=== PATIENT | female | born 1945 | race Caucasian/White ===

== ENCOUNTER → 2017-02-09 | Outpatient (CLI) | payer MEDICARE, OTHER ==
[~2017-02-09] MED LIST: SIMV20TA PO
== END | disposition home or self-care (01) ==
LOC: CFH 13:09
PROVIDERS: ATTEND Family Medicine
DX: Z12.31 Encounter for screening mammogram for malignant neoplasm of breast (principal); Z85.3 Personal history of malignant neoplasm of breast; Z92.3 Personal history of irradiation; Z98.890 Other specified postprocedural states
CPT/HCPCS: G0202

== ENCOUNTER 2018-10-11 13:49 | Outpatient (CLI) | payer MEDICARE, OTHER ==
[2018-10-11] MEDS ORDERED: GADOBUTROL 7.5 MMOL/7.5 ML PFS ONE (15:48)
== END 2018-10-11 23:59 | disposition home or self-care (01) ==
LOC: RAD 13:49
PROVIDERS: ATTEND Physical Medicine & Rehabilitation
DX: M51.34 Other intervertebral disc degeneration, thoracic region (principal); M51.24 Other intervertebral disc displacement, thoracic region; L84 Corns and callosities
CPT/HCPCS: 72157; A9585

== ENCOUNTER 2019-02-28 13:18 | Outpatient (CLI) | payer MEDICARE, OTHER | END 2019-02-28 23:59 | disposition home or self-care (01) | LOC: CFH 13:18 | PROVIDERS: ATTEND Internal Medicine Hematology & Oncology | DX: Z12.31 Encounter for screening mammogram for malignant neoplasm of breast (principal); N64.89 Other specified disorders of breast | CPT/HCPCS: 77063; 77067 ==

== ENCOUNTER 2019-03-07 13:23 | Outpatient (CLI) | payer MEDICARE, OTHER | END 2019-03-07 23:59 | disposition home or self-care (01) | LOC: CFH 13:23 | PROVIDERS: ATTEND Family Medicine | DX: M47.814 Spondylosis without myelopathy or radiculopathy, thoracic region (principal); M41.85 Other forms of scoliosis, thoracolumbar region | CPT/HCPCS: 72072 ==

== ENCOUNTER 2019-03-28 13:06 | Outpatient (CLI) | payer MEDICARE, OTHER | END 2019-03-28 23:59 | disposition home or self-care (01) | LOC: CFH 13:06 | PROVIDERS: ATTEND Internal Medicine Hematology & Oncology | DX: N64.89 Other specified disorders of breast (principal); Z85.3 Personal history of malignant neoplasm of breast | CPT/HCPCS: 76642; 77065 ==

== ENCOUNTER 2020-01-14 10:42 | Outpatient (CLI) | payer MEDICARE, OTHER ==
[~2020-01-14 10:42] MED LIST changes: +ALPR0.5T7 PO; +ASPI-496 PO; +CALC1CAP8 PO; +CITA20TA9 PO; +D3 PO; +HYDR12.517 PO; +[UNRECOGNIZED DRUG - OTHER] PO; +[UNRECOGNIZED DRUG - OTHER] PO; +[UNRECOGNIZED DRUG - OTHER] PO; +flaxseed PO; +hydrochlorothiazide PO; +valium PO
== END 2020-01-14 23:59 | disposition home or self-care (01) ==
LOC: CFH 10:42
PROVIDERS: ATTEND Internal Medicine Hematology & Oncology
DX: M85.88 Other specified disorders of bone density and structure, other site (principal)
CPT/HCPCS: 77080

== ENCOUNTER → 2020-05-07 | Outpatient (CLI) | payer MEDICARE, OTHER | END | disposition home or self-care (01) | LOC: CFH 15:18 | PROVIDERS: ATTEND Internal Medicine Hematology & Oncology | DX: Z12.31 Encounter for screening mammogram for malignant neoplasm of breast (principal); C50.911 Malignant neoplasm of unspecified site of right female breast | CPT/HCPCS: 77063; 77067 ==

== ENCOUNTER → 2021-01-28 | Outpatient (CLI) | payer MEDICARE, OTHER ==
[2021-01-28 08:26] LABS: BASOPHILS % (AUTO) 1 % (0-1); EOSINOPHILS % (AUTO) 1 % (1-7); LYMPHOCYTES % (AUTO) 46 % (22-44); MEAN CORPUSCULAR HEMOGLOBIN 32.8 pg (27.0-34.8); MEAN CORPUSCULAR HGB CONC 34.5 g/dL (32.4-35.8); MEAN PLATELET VOLUME 8.2 fL (7.4-10.4); MONOCYTES % (AUTO) 7 % (2-9); NEUTROPHILS % (AUTO) 46 % (42-75); PLATELET COUNT 174 x10^3/uL (130-400); RED BLOOD COUNT 4.54 x10^6/uL (3.82-5.3); RED CELL DISTRIBUTION WIDTH 14.2 % (9.6-15.2)
[2021-01-28 08:34] LABS: ALBUMIN 3.9 g/dL (3.4-5.0); ANION GAP 7 mmol/L (5-15); CALCIUM 8.9 mg/dL (8.5-10.1); CHLORIDE 105 mmol/L (98-107)
[2021-01-28 08:38] LABS: ALANINE AMINOTRANSFERASE 35 U/L (12-78); ALKALINE PHOSPHATASE 62 U/L (45-117); BILIRUBIN,TOTAL 0.7 mg/dL (0.2-1.0); CHOL/HDL RATIO 2.6; CHOLESTEROL, TOTAL 188 mg/dL (140-239); CREATININE 0.62 mg/dL (0.55-1.02); HDL CHOL % 39 % (28-40); HDL CHOLESTEROL (DIRECT) 73 mg/dL (40-60); LDL CHOLESTEROL,CALCULATED 96 mg/dL (54-169); LDL/HDL RATIO 1.3 (0.5-3.0); TRIGLYCERIDES 94 mg/dL (50-200); VLDL CHOLESTEROL 19 mg/dL (0-25)
== END | disposition home or self-care (01) ==
LOC: LAB 08:08
PROVIDERS: ATTEND Internal Medicine Cardiovascular Disease
DX: I35.0 Nonrheumatic aortic (valve) stenosis (principal); I34.0 Nonrheumatic mitral (valve) insufficiency; I77.9 Disorder of arteries and arterioles, unspecified
CPT/HCPCS: 36415; 80053; 80061; 85025

== ENCOUNTER 2021-02-18 11:48 | Observation (INO) | payer MEDICARE, OTHER ==
[~2021-02-18] VITALS: Ht 167.6 cm; Wt 58.6 kg
[2021-02-18] MEDS ORDERED: SODIUM CHLORIDE 0.9% 1,000 ML IV SCH (13:00)
[2021-02-18] MEDS ORDERED: VIT1TABL32 PO (13:05)
[2021-02-18] MEDS ORDERED: DENO60DI SQ (13:05)
[2021-02-18 13:54] LABS: BASOPHILS % (AUTO) 0 % (0-1); EOSINOPHILS % (AUTO) 0 % (1-7); LYMPHOCYTES % (AUTO) 42 % (22-44); MEAN CORPUSCULAR HEMOGLOBIN 33.3 pg (27.0-34.8); MEAN CORPUSCULAR HGB CONC 34.8 g/dL (32.4-35.8); MEAN PLATELET VOLUME 8.3 fL (7.4-10.4); MONOCYTES % (AUTO) 6 % (2-9); NEUTROPHILS % (AUTO) 51 % (42-75); PLATELET COUNT 172 x10^3/uL (130-400); RED BLOOD COUNT 4.21 x10^6/uL (3.82-5.3)
[2021-02-18 13:55] LABS: ANION GAP 6 mmol/L (5-15); CHLORIDE 102 mmol/L (98-107); CREATININE 0.61 mg/dL (0.55-1.02)
[2021-02-18] MEDS ORDERED: VERAPAMIL 2.5 MG/ML, 2ML ONE (16:54)
[2021-02-18] MEDS ORDERED: FENTANYL PF 100 MCG/2ML ONE (16:54)
[2021-02-18] MEDS ORDERED: TICAGRELOR 90 MG TABLET ONE (16:54)
[2021-02-18] MEDS ORDERED: BIVALIRUDIN 250 MG ONE (16:54)
[2021-02-18] MEDS ORDERED: MIDAZOLAM 1 MG/ML, 5ML ONE (16:54)
[2021-02-18] MEDS ORDERED: LIDOCAINE-MPF 1%, 5ML ONE (16:55)
[2021-02-18] MEDS ORDERED: HEPARIN 1,000 UNITS/ML, 10ML ONE (16:55)
[2021-02-18] MEDS ORDERED: BIVALIRUDIN 250 MG in SODIUM CHLORIDE 0.9% 50 ML IV SCH (18:00)
[2021-02-18] MEDS: SODIUM CHLORIDE 0.9% 1,000 ML IV SCH (18:17)
[2021-02-18 19:46] VITALS: BP 123/75
[2021-02-18] MEDS: TICAGRELOR 90 MG TABLET PO SCH (20:22)
[2021-02-18] MEDS ORDERED: ATORVASTATIN 40 MG TABLET PO SCH (21:00)
[2021-02-18] MEDS ORDERED: ACETAMINOPHEN 325 MG TABLET PO PRN (22:00)
[2021-02-18 23:12] VITALS: BP 144/78
[2021-02-18] MEDS ORDERED: ONDANSETRON ODT 4 MG PO PRN (23:30)
[2021-02-19 01:16] VITALS: BP 114/72
[2021-02-19] MEDS: SODIUM CHLORIDE 0.9% 1,000 ML IV SCH ×2 (02:00→10:00)
[2021-02-19 05:23] LABS: CHLORIDE 103 mmol/L (98-107)
[2021-02-19 05:29] LABS: ANION GAP 9 mmol/L (5-15); CALCIUM 8.6 mg/dL (8.5-10.1); CREATININE 0.71 mg/dL (0.55-1.02)
[2021-02-19 07:45] VITALS: BP 137/78
[2021-02-19] MEDS ORDERED: TICA90TA PO (08:20)
[2021-02-19] MEDS ORDERED: ACET325T26 PO (08:20)
[2021-02-19] MEDS: TICAGRELOR 90 MG TABLET PO SCH (08:59)
[2021-02-19] MEDS ORDERED: ASPIRIN 81 MG TABLET EC PO SCH (09:00)
[2021-02-19] MEDS ORDERED: HYDROCHLOROTHIAZIDE 12.5 MG CAPSULE PO SCH (09:00)
[2021-02-19] MEDS ORDERED: CITALOPRAM 20 MG TABLET PO SCH (09:00)
[2021-03-03] MEDS ORDERED: ALPR1TAB2 PO (10:39)
== END 2021-02-19 12:20 | disposition home or self-care (01) ==
LOC: CACL 11:48 → 5SO 17:45 → CACL 17:52 → 5SO 21:18 → DCLOUNGE 02-19 12:10
PROVIDERS: ADMIT Internal Medicine Cardiovascular Disease; ATTEND Internal Medicine Cardiovascular Disease
DX: I08.0 Rheumatic disorders of both mitral and aortic valves (principal); I25.10 Atherosclerotic heart disease of native coronary artery without angina pectoris; I10 Essential (primary) hypertension; E78.5 Hyperlipidemia, unspecified; M19.90 Unspecified osteoarthritis, unspecified site; Z96.659 Presence of unspecified artificial knee joint; Z79.82 Long term (current) use of aspirin; Z79.899 Other long term (current) drug therapy; Z85.3 Personal history of malignant neoplasm of breast; Z87.891 Personal history of nicotine dependence
CPT/HCPCS: 36415; 80048; 85025; 93458; 99156; 99157; C1725; C1769; C1874; C1887; C1894; C9600; G0378; J0583; J1644; J2250; J3010; Q0162; Q9967

== ENCOUNTER 2021-04-10 08:24 | Outpatient (CLI) | payer MEDICARE, OTHER ==
[~2021-04-10 08:24] MED LIST changes: +ACET325T26 PO; +ALPR1TAB2 PO; +DENO60DI SQ; +TICA90TA PO; +VIT1TABL32 PO
== END 2021-04-10 23:59 | disposition home or self-care (01) ==
LOC: CFH 08:24
PROVIDERS: ATTEND Internal Medicine Cardiovascular Disease
DX: Z01.810 Encounter for preprocedural cardiovascular examination (principal); I08.8 Other rheumatic multiple valve diseases; I11.9 Hypertensive heart disease without heart failure; I25.10 Atherosclerotic heart disease of native coronary artery without angina pectoris; Z95.5 Presence of coronary angioplasty implant and graft; Z95.4 Presence of other heart-valve replacement
CPT/HCPCS: 93306

== ENCOUNTER → 2021-05-11 | Outpatient (CLI) | payer MEDICARE, OTHER | END | disposition home or self-care (01) | LOC: CFH 12:56 | PROVIDERS: ATTEND Internal Medicine Hematology & Oncology | DX: Z12.31 Encounter for screening mammogram for malignant neoplasm of breast (principal) | CPT/HCPCS: 77063; 77067 ==